=== PATIENT | male | born 1960 | race Caucasian/White ===

== ENCOUNTER 2016-11-12 15:14 | Outpatient (CLI) | payer OTHER ==
[~2016-11-12 15:14] MED LIST: ASPIRIN ADULT L81 M1 PO; INDERAL EQUIVAL20 MG PO; NARATRIPTAN HC2.5 MG PO; PEPCID AC10 MG PO; TYLENOL/CODEINE #3 PO
== END 2016-11-12 23:00 ==
LOC: RT SRH 15:14
PROC: 4A02XM4 Measurement of Cardiac Total Activity, External Approach (ICD-10-PCS; principal; 2016-11-12)
DX: E78.2 Mixed hyperlipidemia (principal)